=== PATIENT | female | born 2000 | race Two or more races ===

== ENCOUNTER 2022-03-09 18:35 | Emergency (ER) | payer OTHER ==
[2022-03-09 18:55] VITALS: BP 120/77; PULSE 90; RESP 18; TEMP 99; BMI 24.0
[2022-03-09] MEDS ORDERED: PSEUDOEPHEDRINE HCL 30 MG TABLET PO ONE (20:35)
[2022-03-09] MEDS ORDERED: LORATADINE 10 MG TABLET PO ONE (20:35)
[2022-03-09] MEDS ORDERED: LORATADINE 10 MG TABLET ONE (20:40)
[2022-03-09] MEDS ORDERED: PSEUDOEPHEDRINE HCL 60 MG TABLET ONE (20:40)
== END 2022-03-09 20:47 | disposition home or self-care (01) ==
LOC: JERFT 18:35
DX: H73.893 Other specified disorders of tympanic membrane, bilateral (principal)
CPT/HCPCS: 0241U-QW; 99283-25